=== PATIENT | male | born 1955 | race Caucasian/White ===

== ENCOUNTER 2018-11-10 13:54 | Day surgery (SDC) | payer OTHER ==
[2018-11-10] MEDS ORDERED: LR 1,000 ML IV ONE (14:12)
[2018-11-10] MEDS ORDERED: LIDOCAINE 1% 2 ML INJ ID PRN (14:12)
[2018-11-10] MEDS ORDERED: ONDANSETRON 4 MG/2 ML VIAL IVP PRN (16:14)
[2018-11-10] MEDS ORDERED: NALOXONE HCL 0.4 MG/ML INJ IVP PRN (16:14)
[2018-11-10] MEDS ORDERED: ALBUTEROL 3 ML DEYVIAL IH PRN (16:14)
--- NOTE | 2018-11-10 16:14 | PDGENHP ---
History & Physical Chief Complaint: globus History of Present Illness: hx globus better with PPI Pertinent Past, Social, Family History: quit tobacco 25 years. alcohol no - stopped 22 yeas ago. fhx gastric cancer Relevant Physical Exam: A+Ox3. CTA. S1S2. +BS, soft nt Cardiorespiratory Assessment: class 2
--- NOTE | 2018-11-10 16:14 | PDANEPAE ---
ANE History of Present Illness here for EGD ANE Past Medical History - Cardiovascular History Hx Hypertension: Yes Hx Arrhythmias: No Hx Chest Pain: No Hx Coronary Artery / Peripheral Vascular Disease: Yes Hx CHF / Valvular Disease: No Hx Palpitations: No - Pulmonary History Hx COPD: No Hx Asthma/Reactive Airway Disease: No Hx Recent Upper Respiratory Infection: No Hx Oxygen in Use at Home: No Hx Sleep Apnea: Yes Sleep Apnea Screening Result - Last Documented: Positive Pulmonary History Comment: EMIL USES C-PAP - Neurologic History Hx Cerebrovascular Accident: No Hx Seizures: No Hx Dementia: No - Endocrine History Hx Diabetes: No Endocrine History Comment: HYPOTHYROID - Renal History Hx Renal Disorders: No - Liver History Hx Hepatic Disorders: No - Neurological & Psychiatric Hx Hx Neurological and Psychiatric Disorders: No - Cancer History Hx Cancer: No - Congenital Disorder History Hx Congenital Disorders: No - GI History Hx Gastrointestinal Disorders: Yes Gastrointestinal History Comment: INTERMITTENT DYSPHAGIA. DRY EYES. HYPOGONADISM - Other Health History Other Health History: NEG - Chronic Pain History Chronic Pain: No - Surgical History Prior Surgeries: LT KNEE SCOPE. RT HAND RECONSTRUCTION. TONSILLECTOMY ANE Review of Systems Review of systems is: negative Review of Systems: - Exercise capacity Exercise capacity: >=4 METS METS (RN): 4 METS ANE Patient History - Allergies Allergies/Adverse Reactions: fentanyl Allergy (Verified 10/30/18 11:49) DISORIENTED FOR DAYS midazolam [From Versed] Allergy (Verified 10/30/18 11:49) DISORIENTED FOR DAYS - Home Medications Home medications: home medication list seen and reviewed Home Medications: ARMOUR THYROID DAILY 10/30/18 [Last Taken Unknown] Aspirin 81mg (*) DAILY 10/30/18 [Last Taken Unknown] Crestor HS 10/30/18 [Last Taken Unknown] Cytomel BID 10/30/18 [Last Taken Unknown] Herbals/Supplements -Info Only DAILY 10/30/18 [Last Taken Unknown] Ramipril DAILY AT 2PM 10/30/18 [Last Taken Unknown] Restasis Opht Drops(*) BID 10/30/18 [Last Taken Unknown] Zetia HS 10/30/18 [Last Taken Unknown] - NPO status NPO Status: no food or drink >8 hours NPO Since - Liquids (Date): 11/10/18 NPO Since - Liquids (Time): 07:30 NPO Since - Solids (Date): 11/10/18 NPO Since - Solids (Time): 05:30 - Smoking Hx Smoking Status: Former smoker ANE Labs/Vital Signs - Vital Signs Vital Signs: reviewed preoperatively; see RN documention for details Blood Pressure: 132/79 Heart Rate: 77 Respiratory Rate: 18 O2 Sat (%): 95 Height: 172.72 cm Weight: 68.039 kg ANE Physical Exam - Airway Neck exam: FROM Mallampati Score: Class 1 - Pulmonary Pulmonary: no respiratory distress - Cardiovascular Cardiovascular: regular rate and rhythym - ASA Status ASA Status: II ANE Anesthesia Plan Anesthesia Plan: GA with mask
[2018-11-10] MEDS ORDERED: PROPOFOL/EMULSION 500 MG/50 ML BOTTLE IV ONE (16:25)
--- NOTE | 2018-11-10 16:54 | GIREPORT ---
[facility] Surgical Services - Endoscopy Department Patient Name: Edwin Choe Procedure Date: 11/10/2018 4:09 PM Patient Type: Outpatient Attending MD/ ER Physician: Ramiro Teresa MD Procedure: Upper GI endoscopy Indications: Globus sensation, Family history of gastric cancer Providers: Ramiro Teresa MD Referring MD: ERIN Vasuqez Medicines: Propofol per Anesthesia Complications: No immediate complications. Estimated blood loss: Minimal. Description of Procedure: After obtaining informed consent, the endoscope was passed under direct vision. Throughout the procedure, the patient's blood pressure, pulse, and oxygen saturations were monitored continuously. The Endoscope was intro duced through the mouth, and advanced to the third part of duodenum. The uppe r GI endoscopy was accomplished without difficulty. The patient tolerated th e procedure well. Findings: The examined esophagus was normal. Scattered mild inflammation characterized by adherent blood, erythema, friability and granularity was found in the gastric body and in the gas tric antrum. Biopsies were taken with a cold forceps for histology. Estimate d blood loss was minimal. Scattered mild inflammation characterized by erythema and friability wa s found in the duodenal bulb. Biopsies were taken with a cold forceps for histology. Estimated blood loss was minimal. The second portion of the duodenum and third portion of the duodenum we re normal. Biopsies were taken with a cold forceps for histology. Estimate d blood loss was minimal. The exam was otherwise without abnormality. Estimated Blood Loss: Estimated blood loss was minimal. Post Op Diagnosis: - Normal esophagus. - Gastritis. Biopsied. (from aspirin?) - Duodenitis. Biopsied. - Normal second portion of the duodenum and third portion of the duoden um. Biopsied. - The examination was otherwise normal. Recommendation: - Await pathology results. - My office will call with the pathology result with 5-7 days. If you h ave not heard from my office by 12-14, do not assume the pathology is malik l, please call [phone] to get the pathology results. - Continue present medications. - Patient has a contact number available for emergencies. The signs and symptoms of potential delayed complications were discussed with the pat ient. Return to normal activities tomorrow. Written discharge instructions we re provided to the patient. - Discharge patient to home (ambulatory). - Return to primary care physician as previously scheduled. - Thank you for allowing me to help in your patient's care. Do not hesi salazar to call with any questions. Attending Participation: I personally performed the entire procedure. Brii Wilks M.D Ramiro Teresa MD 11/10/2018 4:54:10 PM This report has been signed electronicallyMattsammw MD Brii Number of Addenda: 0 Note Initiated On: 11/10/2018 4:09 PM [email or web address]
[2018-11-10 18:04] VITALS: BP 136/80
== END 2018-11-10 17:55 | disposition home or self-care (01) ==
LOC: FSGY 13:54
PROVIDERS: ATTEND Internal Medicine Gastroenterology
DX: F45.8 Other somatoform disorders (principal); Z80.0 Family history of malignant neoplasm of digestive organs; G47.33 Obstructive sleep apnea (adult) (pediatric); E03.9 Hypothyroidism, unspecified
CPT/HCPCS: J2704